=== PATIENT | female | born 1960 | race Two or more races ===

== ENCOUNTER 2017-08-22 14:03 | Outpatient (CLI) | payer OTHER | END 2017-08-22 14:08 | disposition home or self-care (01) | LOC: RAD 501 14:03 | DX: M41.20 Other idiopathic scoliosis, site unspecified (principal) ==

== ENCOUNTER → 2019-02-08 | Outpatient (CLI) | payer OTHER | END | disposition home or self-care (01) | LOC: RAD 13:10 | DX: G89.11 Acute pain due to trauma (principal) ==